=== PATIENT | female | born 1940 | race Caucasian/White ===

== ENCOUNTER 2017-07-01 05:30 | Emergency (ER) | payer OTHER, MEDICARE ==
[~2017-07-01] VITALS: Ht 167.6 cm; Wt 71.0 kg
[~2017-07-01 05:30] MED LIST: ASPI81 PO; ATOR10 PO; VASE1025 PO
[2017-07-01 05:48] VITALS: BP 196/74; PULSE 77; RESP 20; TEMP 96.4; O2SAT 93
--- NOTE | 2017-07-01 05:55 | PD ---
HPI Chief Complaint: Fall Time Seen by Provider: 05:33 Travel History International Travel<30 days: No Contact w/Intl Traveler<30days: No Traveled to known affect area: No History of Present Illness HPI The patient is a 76-year-old female, hospice patient, who apparently fell out of bed tonight and hit her left forehead. She had pain "all over" prior to the fall. She had taken 1 of her OxyContin once earlier tonight. She does not have any pain where she hit her head specifically, most of her pain is in the back and lungs-specifically right ribs. 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 Apparently, hospice was going to do the admission process at 6:00 this morning but the family did not want to wait. Hospice is now coming here this morning to do the admission process. The patient is here for pain control. She does have a PowerPort. According to the family, the patient has been eating well but she has not produced urine in several days. The family thinks she has been getting Dilaudid in the hospital in [place]. The patient states morphine makes her "crazy". She has had chemotherapy, gemcitabine and Taxotere on June 02. She no longer is on chemotherapy. PFSH Past Medical History Diminished Hearing: No Hypertension: Yes Integumentary: Yes (BROWN RECLUSE SPIDER BITE 1989) Immunizations Current: No : 2 Para: 1 Past Surgical History Abdominal Surgery: Yes (COLON RESECTION 2006) AICD: No Appendectomy: Yes (1964) Cholecystectomy: Yes (1984) Hysterectomy: Yes () Pacemaker: No Social History Alcohol Use: No Tobacco Use: No Substance Use: No Allergies-Medications (Allergen,Severity, Reaction): Coded Allergies: atropine (Unverified Allergy, Severe, SWELLING, 11/05/16) codeine (Unverified Allergy, Severe, SWELLING, 11/05/16) morphine (Verified Allergy, Intermediate, 07/01/17) Reported Meds & Prescriptions Reported Meds & Active Scripts Active Reported Lidocaine Patch 12 HR (Lidocaine) 5 % Patch 1 Patch TOPICAL DAILY Remove patch after 12 hours Dexamethasone 2 Mg Tab 2 Mg PO DAILY Oxycodone (Oxycodone HCl) 5 Mg Cap 5 Mg PO Q4H PRN Zofran (Ondansetron HCl) 8 Mg Tab 8 Mg PO TID Claritin (Loratadine) 10 Mg Cap 10 Mg PO DAILY Digestive Advantage Probiotic (Lactobacillus Rhamnosus (GG)) 1 Chew 1 Tab CHEW Folic Acid 0.8 Mg Tab 800 Mcg PO DAILY Ferrous Sulfate 325 Mg (65 Mg Iron) Tablet 325 Mg PO BIDPC Clopidogrel (Clopidogrel Bisulfate) 75 Mg Tab 75 Mg PO DAILY Citrucel (Methylcellulose) 500 Mg Tab 2 Tab PO DAILY Centrum (Multiple Vitamins W/ Minerals) 1 Chew 1 Tab CHEW DAILY Dulcolax DR (Bisacodyl) 5 Mg Tabdr 5 Mg PO DAILY PRN Atorvastatin (Atorvastatin Calcium) 10 Mg Tab 10 Mg PO HS Amlodipine (Amlodipine Besylate) 10 Mg Tab 10 Mg PO DAILY Review of Systems Except as stated in HPI: all other systems reviewed are Neg Physical Exam Narrative GENERAL: The patient is alert and appears oriented. Vital signs show blood pressure 196/74, 92% oxygenation on 4 L O2, 96.4 temperature taken rectally and respirations 20. Heart rate is 77. The patient does appear slightly dehydrated. SKIN: Focused skin assessment warm/dry. HEAD: Atraumatic. Normocephalic. EYES: Pupils equal and round. No scleral icterus. No injection or drainage. ENT: No nasal bleeding or discharge. Mucous membranes pink and moist. NECK: Trachea midline. No JVD. CARDIOVASCULAR: Regular rate and rhythm. No murmur appreciated. RESPIRATORY: No accessory muscle use. Clear to auscultation. Breath sounds equal bilaterally. GASTROINTESTINAL: Abdomen soft, non-tender, nondistended. Hepatic and splenic margins not palpable. MUSCULOSKELETAL: No obvious deformities. No clubbing. No cyanosis. No edema. NEUROLOGICAL: Awake and alert. No obvious cranial nerve deficits. Motor grossly within normal limits. Normal speech. PSYCHIATRIC: Appropriate mood and affect; insight and judgment normal. Data Data Last Documented VS Vital Signs Date Time Temp Pulse Resp B/P (MAP) Pulse Ox O2 Delivery O2 Flow Rate FiO2 07/01/17 06:39 78 24 156/79 (104) 98 Nasal Cannula 4.00 07/01/17 05:48 96.4 Orders Orders Hydromorphone Pf Inj (Dilaudid Pf Inj) (07/01/17 06:00) Sodium Chlor 0.9% 1000 Ml Inj (Ns 1000 M (07/01/17 06:00) Complete Blood Count With Diff (07/01/17 05:57) Basic Metabolic Panel (Bmp) (07/01/17 05:57) Urinalysis - C+S If Indicated (07/01/17 05:57) Hydromorphone Pf Inj (Dilaudid Pf Inj) (07/01/17 06:45) Labs Laboratory Tests Test 07/01/17 06:11 Blood Urea Nitrogen 20 MG/DL Creatinine 0.58 MG/DL Random Glucose 192 MG/DL Calcium Level 8.8 MG/DL Sodium Level 138 MEQ/L Potassium Level 3.8 MEQ/L Chloride Level 101 MEQ/L Carbon Dioxide Level 28.8 MEQ/L Anion Gap 8 MEQ/L Estimat Glomerular Filtration Rate 101 ML/MIN MDM Medical Decision Making Medical Screen Exam Complete: Yes Emergency Medical Condition: Yes Medical Record Reviewed: Yes Differential Diagnosis Intractable pain, hospice patient, metastatic sarcoma, metastatic cancer Narrative Course The hospice nurse came and the family wants the patient could be admitted to the hospice care center. The patient will be admitted to Dr. Clemons at the hospice care center. The patient will be discharged from the emergency department. Diagnosis Primary Impression: Hospice care patient Additional Impressions: Intractable pain Metastatic sarcoma to lung Disposition: 51 HOSPICE/MED FACILITY Condition: Stable Rigoberto Lugo MD Jul 01, 2017 05:55
[2017-07-01] MEDS ORDERED: ZOFR8TAB PO (05:57)
[2017-07-01] MEDS ORDERED: AMLO10TA2 PO (05:57)
[2017-07-01] MEDS ORDERED: FOLI800T PO (05:57)
[2017-07-01] MEDS ORDERED: CLAR10CA3 PO (05:57)
[2017-07-01] MEDS ORDERED: PROB1CHW4 CHEW (05:57)
[2017-07-01] MEDS ORDERED: CLOP75TA PO (05:57)
[2017-07-01] MEDS ORDERED: FERR325T18 PO (05:57)
[2017-07-01] MEDS ORDERED: ATOR10TA15 PO (05:57)
[2017-07-01] MEDS ORDERED: CITR500T PO (05:57)
[2017-07-01] MEDS ORDERED: DULC5TAB PO (05:57)
[2017-07-01] MEDS ORDERED: CENTCHW4 CHEW (05:57)
[2017-07-01] MEDS ORDERED: DEXA2TAB PO (05:57)
[2017-07-01] MEDS ORDERED: OXYC1CAP PO (05:57)
[2017-07-01] MEDS ORDERED: LIDO1PAD52 TOPICAL (05:58)
[2017-07-01] MEDS ORDERED: SODIUM CHLOR 0.9% 1000 ML INJ 1,000 ML IV ONE (06:00)
[2017-07-01] MEDS ORDERED: HYDROmorphone HCL PF 2 MG/ML VIAL IV ONE ×2 (06:00→06:45)
[2017-07-01 06:33] LABS: AUTOMATED NEUTROPHIL # 20.3 TH/MM3 (1.8-7.7); BASOPHIL # 0.5 TH/MM3 (0-0.2); BASOPHIL % 2.3 % (0.0-2.0); EOSINOPHIL # 0.6 TH/MM3 (0-0.4); EOSINOPHIL % 2.6 % (0.0-4.0); HEMATOCRIT 26.7 % (35.0-46.0); HEMOGLOBIN 8.2 GM/DL (11.6-15.3); LYMPH % 5.6 % (9.0-44.0); LYMPHOCYTE # 1.3 TH/MM3 (1.0-4.8); MEAN CORPUSCULAR HEMOGLOBIN 25.4 PG (27.0-34.0); MEAN CORPUSCULAR HGB CONC 30.6 % (32.0-36.0); MEAN PLATELET VOLUME 6.7 FL (7.0-11.0); MONO % 4.6 % (0.0-8.0); MONOCYTE # 1.1 TH/MM3 (0-0.9); NEUT % 84.9 % (16.0-70.0); PLATELET COUNT 732 TH/MM3 (150-450); RED BLOOD COUNT 3.22 MIL/MM3 (4.00-5.30); RED CELL DISTRIBUTION WIDTH 20.7 % (11.6-17.2); WHITE BLOOD COUNT 23.8 TH/MM3 (4.0-11.0)
[2017-07-01 06:39] VITALS: BP 156/79; PULSE 78; RESP 24; O2SAT 98
[2017-07-01 06:44] LABS: BICARBONATE 28.8 MEQ/L (21.0-32.0); CALCIUM 8.8 MG/DL (8.5-10.1)
[2017-07-01 06:48] LABS: CREATININE 0.58 MG/DL (0.50-1.00)
[2017-07-01] MEDS ORDERED: HYDROmorphone HCL PF 2 MG/ML VIAL IV PUSH ONE ×2 (07:15→08:15)
[2017-07-01] MEDS ORDERED: ONDANSETRON HCL 4 MG/2 ML VIAL IV PUSH ONE (08:30)
[2017-07-01] MEDS ORDERED: ONDANSETRON HCL 4 MG/2 ML VIAL ONE (08:31)
== END 2017-07-01 09:58 | disposition hospice, inpatient (51) ==
LOC: PHED 05:30
DX: R52 Pain, unspecified (principal); C78.00 Secondary malignant neoplasm of unspecified lung; I10 Essential (primary) hypertension; W06.XXXA Fall from bed, initial encounter; Z92.21 Personal history of antineoplastic chemotherapy; Z88.5 Allergy status to narcotic agent
CPT/HCPCS: 80048; 85025; 96361; 96374; 96375; 96376; 99285; J1170; J2405; J7030